=== PATIENT | male | born 1995 | race African-American/Black ===

== ENCOUNTER 2022-01-19 15:55 | Emergency (ER) | payer SELFPAY ==
[2022-01-19 15:58] VITALS: BP 120/71; PULSE 66; RESP 20; TEMP 36.6; O2SAT 96
--- NOTE | 2022-01-19 17:21 | PC.NURSE ---
Patient's name called multiple times in waiting room to be taken to ED room, no answer.
--- NOTE | 2022-01-19 18:11 | PC.NURSE ---
Not present in [facility] when name called. Removed from tracker.
== END 2022-01-19 18:12 | disposition left against medical advice (07) ==
DX: R51.9 Headache, unspecified (principal)
CPT/HCPCS: 99199

== ENCOUNTER 2024-02-21 15:28 | Emergency (ER) | payer SELFPAY ==
--- NOTE | ~2024-02-21 | CT_ITS ---
EXAMINATION: CT abdomen pelvis w con DATE: 02/21/2024 20:32 INDICATION: Left lower quadrant abdominal pain, blood in stool TECHNIQUE: Computed tomography (CT) of the abdomen and pelvis was performed with 100 CC Omnipaque 350 intravenous contrast. Automated exposure control and iterative reconstruction technique were employe d. Exam dose: 493.31 mGy-cm total exam DLP. COMPARISON: None. FINDINGS: The lung bases are clear. Normal heart size. No pericardial or pleural effusion. There are multiple small stones in the dependent aspect of the gallbladder. No gallbladder wall thick ening or pericholecystic fluid or fat stranding. No bile duct or pancreatic duct dilatation. No hepatic, splenic or pancreatic mass lesion or pancreatic calcification. Normal morphology of the adrenal glands. No renal mass lesion or ureteral calculus or hydroureteronephrosis is detected. The urinary bladder, prostate gland and seminal vesicles are unremarkable. Normal caliber of the abdominal aorta. No intraperitoneal or retroperitoneal or pelvic mass lesion or adenopathy or ascites. Normal appendix. No bowel obstruction, bowel wall thickening, pneumatosis or intraperitoneal free air is detected. Included skeletal structures are unremarkable. IMPRESSION: Cholelithiasis Normal appendix Reviewed, dictated and finalized at [facility]. Reviewed, dictated and finalized at [facility].
[2024-02-21 15:32] VITALS: BP 135/84; PULSE 87; RESP 19; TEMP 36.4; O2SAT 100
--- NOTE | 2024-02-21 18:03 | ED.GENADULT ---
HPI - General Adult General Chief complaint: GI Bleed <Marcel Malloy MD - Last Filed: 02/21/24 18:06> Stated complaint: bloody stool <Marcel Malloy MD - Last Filed: 02/21/24 18:06> Time Seen by Provider: 02/21/24 17:53 <Marcel Malloy MD - Last Filed: 02/21/24 18:06> History of Present Illness HPI narrative: Patient is a 28-year-old gentleman who presents emergency department with chief complaint of rectal bleeding. The patient reports for the last 2 days he has had blood in his stool the patient reports a very dark colored reports that it is not painful whenever he has a bowel movement reports that he has had a fair amount of gas whenever he passes stool UA bread the patient also reports that he has had some discomfort in his left lower quadrant. The patient reports that he was concerned with bleeding from hemorrhoids or from diverticulitis. <Marcel Malloy MD - Last Filed: 02/21/24 18:06> Related Data Allergies/adverse reactions: Allergies Allergy/AdvReac Type Severity Reaction Status Date / Time No Known Allergies Allergy Verified 02/21/24 15:35 <Marcel Malloy MD - Last Filed: 02/21/24 18:06> Review of Systems Review of Systems: A 10 system review of systems was completed on the patient and is negative except for what is stated in the HPI. Nursing and ancillary documentation was reviewed. <Marcel Malloy MD - Last Filed: 02/21/24 18:06> Exam Narrative: GENERAL: Well-appearing, well-nourished, and in no acute distress. HEAD: Normocephalic, atraumatic. EYES: PERRLA and EOMI. ENT: Nares clear, no rhinorrhea or epistaxis. Mucous membranes moist. NECK: Supple. CHEST: Clear to auscultation. No respiratory distress. HEART: Regular rate and rhythm. No murmur heard. Normal peripheral pulses. ABDOMEN: Soft, mild tenderness to palpation left lower quadrant, nondistended, normal active bowel sounds. : There are several hemorrhoids present on exam stool is trace guaiac positive EXTREMITIES: Normal range of motion. No edema. SKIN: Warm, dry, no rash. NEURO: No focal deficits. Alert and oriented x3. PSYCH: Normal mood and affect. <Marcel Malloy MD - Last Filed: 02/21/24 18:06> Course Reevaluation(s) Reevaluation #1: CT abdomen/pelvis does not show any obvious source of patient blood in stool. Per report there was just a very very trace guaiac-positive otherwise brown stool with hemorrhoid which I suspect may be the reason. Regardless I have discussed with the patient that he will need to follow up with Gastroenterology for possible colonoscopy or endoscopy for further elucidation of his symptoms. Strict return precautions provided, I did also discuss incidental finding of gallstones. Patient and fiancee at bedside agreeable to plan with return precautions <Barbara Cintron MD - Last Filed: 02/21/24 21:24> Vital Signs Vital signs: Vital Signs Temperature 97.6 F 02/21/24 15:32 Pulse Rate 87 02/21/24 15:32 Respiratory Rate 19 02/21/24 15:32 Blood Pressure 135/84 02/21/24 15:32 Pulse Oximetry 100 02/21/24 15:32 Oxygen Delivery Room Air 02/21/24 15:32 Temperature 97.6 F 02/21/24 15:32 Pulse Rate 84 02/21/24 18:40 Respiratory Rate 18 02/21/24 18:40 Blood Pressure 147/93 H 02/21/24 18:40 Pulse Oximetry 99 02/21/24 18:40 Oxygen Delivery Room Air 02/21/24 15:32 <Marcel Malloy MD - Last Filed: 02/21/24 18:06> Vital Signs Temperature 97.6 F 02/21/24 15:32 Pulse Rate 87 02/21/24 15:32 Respiratory Rate 19 02/21/24 15:32 Blood Pressure 135/84 02/21/24 15:32 Pulse Oximetry 100 02/21/24 15:32 Oxygen Delivery Room Air 02/21/24 15:32 Temperature 97.6 F 02/21/24 15:32 Pulse Rate 84 02/21/24 18:40 Respiratory Rate 18 02/21/24 18:40 Blood Pressure 147/93 H 02/21/24 18:40 Pulse Oximetry 99 02/21/24 18:40 Oxygen
[2024-02-21 18:40] VITALS: BP 147/93; PULSE 84; RESP 18; O2SAT 99
[2024-02-21] MEDS: SODIUM CHLORIDE 0.9% IV 1,000 ML 999 ML IV CONT (18:47)
[2024-02-21 18:53] LABS: Basophils Percent Auto 0.8 % (0.2-1.2); Eosinophils Absolute Auto 0.1 K/mm3 (0-0.3); Hematocrit 44.3 % (42.0-52.0); Hemoglobin 15.3 g/dL (14.0-18.0); Immature Granulocyte Absolute 0.03 K/mm3 (0.00-0.031); Immature Granulocyte Percent A 0.6 % (0-0.5); Lymphocytes Absolute Auto 2.19 K/mm3 (0.9-3.2); Lymphocytes Percent Auto 43.6 % (18.3-44.2); Mean Corpuscular HGB Conc 34.5 g/dl (32-36); Mean Corpuscular Hemoglobin 33.6 pg (26-34); Mean Corpuscular Volume 97.1 fl (80-100); Mean Platelet Volume 8.9 fl (7.4-10.4); Monocytes Absolute Auto 0.7 K/mm3 (0.1-0.6); Monocytes Percent Auto 13.5 % (2.6-8.5); Neutrophils Percent Auto 39.5 % (45.5-73.1); Platelet Count Result 299 k/mm3 (150-375); Red Blood Count 4.56 M/mm3 (4.6-6.20); Red Cell Distribution Width 12.3 % (11.5-14.5)
[2024-02-21 18:55] LABS: Add Urine Microscopic? NO; Appearance Urine Clear (Clear); Bilirubin Urine Negative (Negative); Blood Urine Negative (Negative); Color Urine Yellow (Yellow); Glucose Urine UA Negative (Negative); Ketones Urine Negative (Negative); Leukocyte Esterase Ur Negative LEU/UL (Negative); Nitrate Urine Negative (Negative); Protein Urine Negative (Negative); Specific Grav Ur 1.015 (1.001-1.035); pH Urine 7.5 (5.0-9.0)
[2024-02-21 20:16] LABS: Alanine Aminotransferase 32 U/L (6-50); Alkaline Phosphatase 85 U/L (38-126); Anion Gap 7 mmol/L (4-12); Aspartate Amino Transferase 34 U/L (17-59); Bilirubin,Total 0.3 mg/dL (0.2-1.3); Blood Urea Nitrogen 8 mg/dL (9-20); Calcium 8.8 mg/dL (8.4-10.2); Carbon Dioxide 28 mmol/L (22-30); Chloride 100 mmol/L (98-107); Estimated CRCL calculation 114 ml/min; Estimated Glomerular Filt Rate > 60; Glucose 95 mg/dL (65-110); Lactic Acid Reflex 1.2 mmol/L (0.7-2.0); Lipase 70 U/L (23-300); Potassium 3.8 mmol/L (3.4-5.0); Sodium 135 mmol/L (137-145)
[2024-02-21 21:27] VITALS: BP 141/86; PULSE 80; RESP 16; TEMP 36.7; O2SAT 98
== END 2024-02-21 21:28 | disposition home or self-care (01) ==
PROVIDERS: Emergency Medicine; Emergency Provider Emergency Medicine
DX: K80.20 Calculus of gallbladder without cholecystitis without obstruction (principal); K64.9 Unspecified hemorrhoids; K92.1 Melena
CPT/HCPCS: 36415; 74177; 80053; 81003; 83605; 83690; 85025; 86850; 86900; 86901; 96360; 99284; J7030; Q9967